=== PATIENT | female | born 1995 | race Two or more races ===

== ENCOUNTER 2023-07-08 21:01 | Emergency (ER) | payer OTHER, SELFPAY ==
[2023-07-08 21:27] VITALS: BP 152/68; PULSE 99; RESP 16; TEMP 36.8; O2SAT 95; BMI 45.7
[2023-07-08 21:57] LABS: MANUAL DIFF FLAG NO
[2023-07-08 21:59] LABS: Basophils Percent Auto 0.3 % (0-2); Eosinophils Absolute Auto 0.3 X10*3/uL (0.0-0.4); Eosinophils Percent Auto 3.6 % (0-4); Hematocrit 40.1 % (37.0-47.0); Hemoglobin 13.3 g/dl (12.0-16.0); Imm Gran Abs Auto 0.04 X10*3/uL (0.00-0.03); Imm Gran Pct Auto 0.5 % (0.0-0.4); Lymphocytes Absolute Auto 2.6 X10*3/uL (1.2-4.9); Mean Corpuscular HGB Conc 33.2 g/dl (31.0-35.0); Mean Corpuscular Hemoglobin 28.1 pg (27.0-33.0); Mean Corpuscular Volume 84.6 fL (80.0-98.0); Mean Platelet Volume 11.8 fL (9.4-12.3); Monocytes Absolute Auto 0.4 X10*3/uL (0.1-1.2); Monocytes Percent Auto 5.7 % (2-11); Neutrophils Absolute Auto 4.4 x10*3/uL (2.0-8.3); Neutrophils Percent Auto 56.9 % (45-73); Platelet Count 274 X10*3/uL (160-400); Red Blood Count 4.74 X10*6/uL (4.20-5.50); Red Cell Distribution Width 14.8 % (11.0-16.0); White Blood Count 7.8 X10*3/uL (4.8-10.8)
[2023-07-08 22:07] LABS: IDNOW Serial# 58CA691E
[2023-07-08 22:08] LABS: Strep A Nucleic Acid Positive (Negative)
[2023-07-08 22:14] LABS: Alanine Aminotransferase 28 U/L (0-31); Albumin Level 4.5 g/dL (3.5-5.0); Alkaline Phosphatase 74 U/L (39-117); Anion Gap 15 (12-20); Aspartate Amino Transferase 21 U/L (5-31); Bilirubin Direct 0.1 mg/dL (0.0-0.5); Bilirubin Total 0.4 mg/dL (0.0-1.0); Blood Urea Nitrogen 11 mg/dL (9-16); Calcium 9.9 mg/dL (8.4-10.2); Carbon Dioxide 24 mmol/L (22-29); Chloride 105 mmol/L (96-108); Creatinine Clr Calc Pharmacy 128.9; Estimated Glomerular Filt Rate > 60; Glucose Random 116 mg/dL (60-115); Lipase 21 U/L (8-78); Potassium 4.1 mmol/L (3.3-5.1); Sodium 140 mmol/L (135-145); Total Protein 8.4 g/dL (6.5-8.0)
[2023-07-08 22:37] LABS: Influenza A PCR NEGATIVE (Negative); Influenza B PCR NEGATIVE (Negative); Resp Syncy Virus RNA Qual PCR NEGATIVE (Negative); SARS COV2 PCR INHOUSE NEGATIVE (Negative)
--- NOTE | 2023-07-08 23:58 | ED.SKABFB ---
HPI - Skin/Abscess/Foreign Bdy General Chief complaint: Skin/Abscess/Foreign Body Stated complaint: body rash,bodyaches Time Seen by Provider: 07/08/23 23:33 Source: patient and family Mode of arrival: ambulatory Limitations: no limitations History of Present Illness HPI narrative: 27-year-old female history of hyper 10 who presents emergency department for evaluation of rash and sore throat. Patient states that 3 weeks prior she developed a sore throat but did not seek treatment her symptoms resolved. She she has a subjective fever but did not seek treatment. Since yesterday, she developed bumps on her upper and lower extremities as well as her groin area. She states that the bumps are painful to palpation. She is also experiencing generalized body aches. She did travel to [place] 3 weeks prior and did developed a sore throat while she was in [place]. The patient states that she stay mainly indoors restaurants but did not go to any outdoor areas. She states that she developed another sore throat after flying home from [place]. Related Data Previous Rx's Medication Instructions Recorded cephalexin 500 mg capsule 500 mg PO QID 10 days #40 caps 07/09/23 Allergies Allergy/AdvReac Type Severity Reaction Status Date / Time amoxicillin Allergy Vomiting Verified 07/08/23 21:35 Review of Systems Review of Systems: Yes all other systems are reviewed and are negative [facility] Past Medical History [facility] Narrative: Past medical history: Hypertension. Social History Advance Directives: No Advance Directives Information Provided: Yes Physical Exam Vital Signs: Vital Signs: Last Vital Signs Temp 98.2 F 07/08/23 21:27 Pulse 99 07/08/23 21:27 Resp 16 07/08/23 21:27 BP 152/68 H 07/08/23 21:27 Pulse Ox 95 07/08/23 21:27 O2 Del Method Room Air 07/08/23 21:27 BMI result Body Mass Index 45.7 Vital signs were normal except for an elevated blood pressure of 152/68 Exam: General: Awake, alert in no distress Head: Normocephalic, atraumatic EENT: PERRL, Lids normal, sclera normal, conjunctiva normal, nose normal , ears normal, throat without erythema or exudates Neck: Supple, no adenopathy, no trachea midline or C-spine tenderness Lung: breath sounds symmetric, no wheezing, rales or rhonchi Chest: symmetric movement, nontender Heart: regular rate and rhythm, normal S1, S2 no murmurs or rubs Abdomen: soft, non-tender, nondistended, normal bowel sounds Back: no vertebral tenderness, no CVAT Extremities: no deformities, moves all extremities symmetrically Skin: Patient multiple circular erythematous lesion of different sizes on her upper and lower extremity and on her hands sparing the palm, the or raised and tender to palpation, there is no increased warmth Psych: Pleasant, cooperative Medical Decision Making Medical Decision Making MDM Narrative: 27-year-old female history of hyper 10 who presents emergency department for evaluation of rash and sore throat. The patient had a sore throat 3 weeks prior which developed she travel to [place] by plane, symptoms resolved but when she traveled back she again developed a sore throat. Sore throat is resolved but she developed a painful rash on her upper and lower extremities yesterday with subjective fever. Vital signs were unremarkable except for an elevated blood pressure-she does have hypertension. Patient's rash is nonspecific and may be secondary to streptococcal infection or erythema nodosum caused by the streptococcal infect. Following tests were ordered: CBC, BMP, liver panel, lipase, the COVID-19, influenza, RSV, rapid strep test 00:17 The patient's laboratory evaluation was interpreted by me as follows: CBC was normal. BMP and liver tests were normal. COVID-19, influenza, RSV were negative Rapid strep was positive. Given the positive rapid streptococcal test, patient's rash is either a streptococcal skin infection versus erythema nodosum I did discuss these possibilities with the patient and the treatment for both conditions would be to treat the underlying infection Patient was started on Keflex 500 mg pills, 1 pill 4 times a day for 10 days, she was given her 1st dose here in the emergency department She has eyes take Tylenol and ibuprofen for pain and for fever. She was given printed and verbal instructions discharged home. Differential Diagnosis Differential Diagnoses: The differential diagnosis associated with the presentation includes Differential diagnosis includes was not limited to streptococcal skin infection, staphylococcal skin infection, erythema nodosum, strep pharyngitis, COVID-19, influenza, RSV Admission/Observation Consideration of admission/observation: Escalation of care including admission/observation considered Lab Data [facility] Lab Attestation statement: I reviewed the patient's lab results. See [facility] 07/08/23 21:52 07/08/23 21:52 Labs: Lab Results 07/08/23 Range/Units 21:52 WBC 7.8 (4.8-10.8) X10*3/uL RBC 4.74 (4.20-5.50) X10*6/uL Hgb 13.3 (12.0-16.0) g/dl Hct 40.1 (37.0-47.0) % MCV 84.6 (80.0-98.0) fL MCH 28.1 (27.0-33.0) pg MCHC 33.2 (31.0-35.0) g/dl RDW 14.8 (11.0-16.0) % Plt Count 274 (160-400) X10*3/uL MPV 11.8 (9.4-12.3) fL Immature Gran % (Auto) 0.5 H (0.0-0.4) % Neut % (Auto) 56.9 (45-73) % Lymph % (Auto) 33.0 (20-40) % [place] % (Auto) 5.7 (2-11) % Eos % (Auto) 3.6 (0-4) % Baso % (Auto) 0.3 (0-2) % Lymph # (Auto) 2.6 (1.2-4.9) X10*3/uL [place] # (Auto) 0.4 (0.1-1.2) X10*3/uL Eos # (Auto) 0.3 (0.0-0.4) X10*3/uL Baso # (Auto) 0.0 (0.0-0.2) X10*3/uL Abs Immat Gran (auto) 0.04 H (0.00-0.03) X10*3/uL Absolute Neuts (auto) 4.4 (2.0-8.3) x10*3/uL Absolute Nucleated RBC 0.000 (0.0-0.012) X10*3/uL Nucleated RBC % (auto) 0.0 (0.0-0.2) /100WBC Sodium 140 (135-145) mmol/L Potassium 4.1 (3.3-5.1) mmol/L Chloride 105 (96-108) mmol/L Carbon Dioxide 24 (22-29) mmol/L Anion Gap 15 (12-20) BUN 11 (9-16) mg/dL Creatinine 0.78 (0.5-1.4) mg/dL Estim Creat Clear Calc 128.9 Estimated GFR > 60 Random Glucose 116 H (60-115) mg/dL Calcium 9.9 (8.4-10.2) mg/dL Total Bilirubin 0.4 (0.0-1.0) mg/dL Direct Bilirubin 0.1 (0.0-0.5) mg/dL AST 21 (5-31) U/L ALT 28 (0-31) U/L Alkaline Phosphatase 74 (39-117) U/L Total Protein 8.4 H (6.5-8.0) g/dL Albumin 4.5 (3.5-5.0) g/dL Lipase 21 (8-78) U/L Influenza Type A (PCR) NEGATIVE (Negative) Influenza Type B (PCR) NEGATIVE (Negative) RSV RNA Qual (PCR) NEGATIVE (Negative) SARS-CoV-2 RNA (RT-PCR) NEGATIVE (Negative) S. pyogenes GrpA LINDA Positive A (Negative) Prescription Management I considered prescription management with: Antibiotic Chronic Conditions Patient?s care impacted by: Hypertension Discharge Plan Discharge Clinical Impression: Acute streptococcal pharyngitis, Erythema nodosum Patient Disposition: Home, Self-Care Instructions: Strep Throat (ED) Additional Instructions: Your blood work was unremarkable which is reassuring Your COVID-19,influenza and RSV tests were negative. Your rapid strep test of your throat was positive. Your rashes is either caused by a streptococcal infection or may be erythema nodosum which is an inflammatory reaction caused by a streptococcal infection. The treatment for both is to treat the underlying infection. Take Keflex (cephalexin) 500 mg pills, 1 pill 4 times a day for 10 days. Take ibuprofen 200 mg pills, 2 pills every 6 hours as needed for pain or fever. Take Tylenol (acetaminophen) 500 mg pills, 2 pills every 6 hours as needed for pain or fever. Follow-up with your doctor in 2 days. Please return to the emergency department if your symptoms get worse or if you develop any symptoms that are concerning to you. Prescriptions: New cephalexin 500 mg capsule 500 mg PO QID 10 Days Qty: 40 0RF
[2023-07-09 00:10] VITALS: BP 134/96; PULSE 107; RESP 16; TEMP 37.9; O2SAT 98
[2023-07-09] MEDS: cephALEXin 500 MG CAPSULE PO (00:10)
== END 2023-07-09 00:15 | disposition home or self-care (01) ==
PROVIDERS: Emergency Provider Emergency Medicine Emergency Medical Services
DX: J02.0 Streptococcal pharyngitis (principal); L52 Erythema nodosum; R21 Rash and other nonspecific skin eruption; Z20.822 Contact with and (suspected) exposure to COVID-19; Z20.828 Contact with and (suspected) exposure to other viral communicable diseases
CPT/HCPCS: 0241U; 80048; 80076; 83690; 85025; 87651; 99283; 99284

== ENCOUNTER 2023-07-14 02:57 | Inpatient (IN) | payer OTHER, SELFPAY ==
[2023-07-14 03:04] VITALS: BP 145/86; PULSE 87; RESP 16; TEMP 36.7; O2SAT 96; BMI 46.0
--- NOTE | 2023-07-14 04:01 | ED_ITS ---
HPI - Allergic Reaction General Chief complaint: Skin/Abscess/Foreign Body Stated complaint: Rash Time Seen by Provider: 07/14/23 03:54 Source: patient Mode of arrival: ambulatory Limitations: no limitations History of Present Illness HPI narrative: Patient was seen and past medical history apparently had sore throat 4 weeks ago got better without any treatment again from having sore throat since 07/06 seen here on 07/08 diagnosed as strep throat and started cephalexin before patient started on cephalexin patient noticed a rash on her both eyes which were maculopapular after taking cephalexin patient's rash got worse and spread to bilateral lower extremity with target lesions sparing oral mucosa palms and soles no abdominal pain no fever no history of similar rash in the past patient denies any significant itching no hematuria no other family member has this rash Related Data Previous Rx's Medication Instructions Recorded cephalexin 500 mg capsule 500 mg PO QID 10 days #40 caps 07/09/23 Allergies Allergy/AdvReac Type Severity Reaction Status Date / Time amoxicillin Allergy Vomiting Verified 07/14/23 03:06 Review of Systems 2 Review of Systems: Yes all other systems are reviewed and are negative [facility] Social History Social History Alcohol intake: never Smoked in Last 30 Days: No Use of substances other than those prescribed or required for medical reasons: No Advance Directives: No Advance Directives Information Provided: Yes Patient : No Physical Exam ED Vital Signs: Vital Signs - 24 hr 07/14/23 03:04 07/14/23 06:05 Temperature 98.0 F 98.3 F Pulse Rate 87 76 Respiratory Rate 16 16 Blood Pressure 145/86 H 148/74 H Pulse Oximetry 96 97 Oxygen Delivery Method Room Air Room Air BMI result Body Mass Index 46.0 Appearance: Alert. Oriented X3. No acute distress. Eyes: PERRLA, No Nystagmus ENT: Pharynx normal. Oral Mucosa moist no oral lesion Neck: Normal inspection. Neck supple. CVS: Normal heart rate and rhythm. Pulses normal. Respiratory: No respiratory distress. Equal air entry bilateral, no wheezing/rales/rhonchi Abdomen: Soft and nontender. Bowel sounds are present, no mass palpable, no CVA tenderness no hepatosplenomegaly Skin: Skin warm and dry. First picture is the rash which she has now, other pictures were the rash before she started on cephalexin Extremities: No lower extremity edema. No calf tenderness Neuro: Oriented X 3. Medications Administered Generic Name Dose Route Start Last Admin Trade Name Freq PRN Reason Stop Dose Admin Enoxaparin Sodium 40 mg 07/14/23 06:15 07/14/23 06:56 Enoxaparin Sodium 40 Mg/0.4 Ml Syringe SUBCUT 40 mg Q24H ROBERTA Administration Discontinued Medications Generic Name Dose Route Start Last Admin Trade Name Gioq PRN Reason Stop Dose Admin Diphenhydramine HCl 50 mg 07/14/23 04:05 07/14/23 04:33 Diphenhydramine Hcl 50 Mg/Ml Vial IVPUSH 07/14/23 04:06 50 mg ONCE ONE Administration Methylprednisolone Sodium Succinate 125 mg 07/14/23 04:01 07/14/23 04:33 Methylprednisolone Sod Succ 125 Mg/2 Ml Vial IVPUSH 07/14/23 04:02 125 mg ONCE ONE Administration Morphine Sulfate 4 mg 07/14/23 04:25 07/14/23 04:37 Morphine Sulfate 4 Mg/Ml Cartridge IVPUSH 07/14/23 04:26 4 mg ONCE ONE Administration Protocol Ondansetron HCl 4 mg 07/14/23 04:25 07/14/23 04:37 Ondansetron Hcl 4 Mg/2 Ml Vial IVPUSH 07/14/23 04:26 4 mg ONCE ONE Administration Medical Decision Making Medical Decision Making [facility] Narrative: Patient with maculopapular rash with target lesions sparing the etiology is not very clear unlikely erythema multiforme as mucosa was not involved, unlikely dress syndrome as patient has no eosinophilia will give IV steroid Benadryl and admit Differential Diagnosis Differential Diagnoses: The differential diagnosis associated with the presentation includes Aram Polo syndrome/erythema multiform/dress syndrome/small vessel vasculitis/lichenoid drug eruption/erythrodermic skin reaction Admission/Observation Consideration of admission/observation: Escalation of care including admission/observation considered Consult Healthcare Provider Management of the patient was discussed with: Hospitalist Lab Data [facility] Lab Attestation statement: I reviewed the patient's lab results. 07/14/23 04:29 07/14/23 04:52 Labs: Lab Results 07/14/23 07/14/23 Range/Units 04:29 04:52 WBC 5.4 (4.8-10.8) X10*3/uL RBC 4.19 L (4.20-5.50) X10*6/uL Hgb 11.6 L (12.0-16.0) g/dl Hct 35.8 L (37.0-47.0) % MCV 85.4 (80.0-98.0) fL MCH 27.7 (27.0-33.0) pg MCHC 32.4 (31.0-35.0) g/dl RDW 15.1 (11.0-16.0) % Plt Count 347 D (160-400) X10*3/uL MPV 11.3 (9.4-12.3) fL Immature Gran % (Auto) 2.0 H (0.0-0.4) % Neut % (Auto) 39.7 L (45-73) % Lymph % (Auto) 51.0 H (20-40) % [place] % (Auto) 3.7 (2-11) % Eos % (Auto) 3.2 (0-4) % Baso % (Auto) 0.4 (0-2) % Lymph # (Auto) 2.8 (1.2-4.9) X10*3/uL [place] # (Auto) 0.2 (0.1-1.2) X10*3/uL Eos # (Auto) 0.2 (0.0-0.4) X10*3/uL Baso # (Auto) 0.0 (0.0-0.2) X10*3/uL Abs Immat Gran (auto) 0.11 H (0.00-0.03) X10*3/uL Absolute Neuts (auto) 2.1 (2.0-8.3) x10*3/uL Absolute Nucleated RBC 0.000 (0.0-0.012) X10*3/uL Nucleated RBC % (auto) 0.0 (0.0-0.2) /100WBC ESR 20 (0-20) MM/HR PT 12.7 (11.1-13.3) SEC INR 1.0 (0.9-1.1) APTT 26.6 (26.0-36.4) SEC Sodium 140 (135-145) mmol/L Potassium 3.9 (3.3-5.1) mmol/L Chloride 108 (96-108) mmol/L Carbon Dioxide 20 L (22-29) mmol/L Anion Gap 16 (12-20) BUN 9 (9-16) mg/dL Creatinine 0.71 (0.5-1.4) mg/dL Estim Creat Clear Calc 142.1 Estimated GFR > 60 Random Glucose 126 H (60-115) mg/dL Calcium 8.9 D (8.4-10.2) mg/dL Total Bilirubin 0.4 (0.0-1.0) mg/dL AST 14 (5-31) U/L ALT 13 (0-31) U/L Alkaline Phosphatase 52 (39-117) U/L C-Reactive Protein 4.14 H (< or = 0.50) mg/dL Total Protein 7.7 (6.5-8.0) g/dL Albumin 4.1 (3.5-5.0) g/dL Discharge Plan Discharge Clinical Impression: Maculopapular rash Patient Disposition: Admitted As Inpatient
[2023-07-14] MEDS: diphenhydrAMINE HCL 50 MG/ML VIAL IVPUSH (04:33)
[2023-07-14] MEDS: methylPREDNISolone Sod Succ 125 MG/2 ML VIAL IVPUSH (04:33)
[2023-07-14 04:36] LABS: Basophils Percent Auto 0.4 % (0-2); Eosinophils Absolute Auto 0.2 X10*3/uL (0.0-0.4); Eosinophils Percent Auto 3.2 % (0-4); Hematocrit 35.8 % (37.0-47.0); Hemoglobin 11.6 g/dl (12.0-16.0); Imm Gran Abs Auto 0.11 X10*3/uL (0.00-0.03); Lymphocytes Absolute Auto 2.8 X10*3/uL (1.2-4.9); MANUAL DIFF FLAG NO; Mean Corpuscular HGB Conc 32.4 g/dl (31.0-35.0); Mean Corpuscular Hemoglobin 27.7 pg (27.0-33.0); Mean Corpuscular Volume 85.4 fL (80.0-98.0); Mean Platelet Volume 11.3 fL (9.4-12.3); Monocytes Absolute Auto 0.2 X10*3/uL (0.1-1.2); Monocytes Percent Auto 3.7 % (2-11); Neutrophils Absolute Auto 2.1 x10*3/uL (2.0-8.3); Neutrophils Percent Auto 39.7 % (45-73); Platelet Count 347 X10*3/uL (160-400); Red Blood Count 4.19 X10*6/uL (4.20-5.50); Red Cell Distribution Width 15.1 % (11.0-16.0); White Blood Count 5.4 X10*3/uL (4.8-10.8)
[2023-07-14] MEDS: ondansetron HCL 4 MG/2 ML VIAL IVPUSH (04:37)
[2023-07-14] MEDS: Morphine Sulfate 4 MG/ML CARTRIDGE IVPUSH (04:37)
[2023-07-14 04:43] LABS: Prothrombin Time 12.7 SEC (11.1-13.3)
[2023-07-14 04:45] LABS: Partial Thromboplastin Time 26.6 SEC (26.0-36.4)
[2023-07-14 05:07] LABS: Erythrocyte Sedimentation Rate 20 MM/HR (0-20)
[2023-07-14 05:15] LABS: Alanine Aminotransferase 13 U/L (0-31); Albumin Level 4.1 g/dL (3.5-5.0); Alkaline Phosphatase 52 U/L (39-117); Anion Gap 16 (12-20); Aspartate Amino Transferase 14 U/L (5-31); Bilirubin Total 0.4 mg/dL (0.0-1.0); Blood Urea Nitrogen 9 mg/dL (9-16); C Reactive Protein 4.14 mg/dL (< or = 0.50); Calcium 8.9 mg/dL (8.4-10.2); Carbon Dioxide 20 mmol/L (22-29); Chloride 108 mmol/L (96-108); Creatinine Clr Calc Pharmacy 142.1; Estimated Glomerular Filt Rate > 60; Glucose Random 126 mg/dL (60-115); Potassium 3.9 mmol/L (3.3-5.1); Sodium 140 mmol/L (135-145); Total Protein 7.7 g/dL (6.5-8.0)
[2023-07-14 06:05] VITALS: BP 148/74; PULSE 76; RESP 16; TEMP 36.8; O2SAT 97
--- NOTE | 2023-07-14 06:32 | P.HPHOSP_ITS ---
History of Present Illness Date of Service: 07/14/23 Attending physician on admission: Juan Ramon Batista Chief Complaint: Generalized body rash x 1 week Patient is a 27 year old obese white female with no significant past medical history who returns to the emergency room for re-evaluation of a generalized body rash. She give a history of having visited [place] 4 weeks ago and while there developed a sore throat that got better after several days without any treatment. She returned to [place] about 2 weeks go and a few days later had another sore throat with associated fevers and so came to the emergency room on 07/08 where she was diagnosed with a strep throat. At the same time, she reported few small erythmetous maculopapular rash and so was started on oral Cephalexin which she has been taking. However, the rash has progressed since then and is now all over her body (only sparing her back, face and palms) painful, itchy and has spread to involve both the upper extremities and trunk. She has not had any recent fevers or chills. Work up done in the ED included a CBC that revealed presence of mild anemia and a chemistry that was largely normal. Admission was requested for further evaluation and management. Review of Systems 2 Review of Systems: Yes all other systems are reviewed and are negative PMFSH Functional capacity: independent ambulation Patient : No Pertinent family history: Reviewed with the patient and not pertinent to this admission. Social History Alcohol intake: never Smoked in Last 30 Days: No Use of substances other than those prescribed or required for medical reasons: No Advance Directives: No Advance Directives Information Provided: Yes Patient : No Recent Travel in [facility] Within the Last 8 Weeks: Yes [facility] Travel Destination/s Comment: [place] Recent Out of Country Travel Within the Last 8 Weeks: No Exposure or Possible Exposure to Illness During Travel: No History of Being in a Healthcare Facility as a Patient, Worker, or Visitor during Travel: No Medical Treatment Received for Symptoms/Illness Related to Travel: No Meds Allergies Allergy/AdvReac Type Severity Reaction Status Date / Time amoxicillin Allergy Vomiting Verified 07/14/23 03:06 Active Medications: Current Medications Acetaminophen (Acetaminophen 325 Mg Tablet) 650 mg PO Q6H PRN PRN Reason: Pain, Mild (Pain Scale 1-3) Hydrocodone Bitart/Acetaminophen (Hydrocodone Bit/Acetam 5/325 Tablet) 1 tab PO Q4H PRN PRN Reason: Pain, Moderate(Pain Scale 4-6) Docusate Sodium (Docusate Sodium 100 Mg Capsule) 100 mg PO BID ROBERTA Enoxaparin Sodium (Enoxaparin Sodium 40 Mg/0.4 Ml Syringe) 40 mg SUBCUT Q24H ROBERTA Melatonin (Melatonin 3 Mg Tablet) 6 mg PO BEDTIME PRN PRN Reason: Insomnia Ondansetron HCl (Ondansetron Hcl 4 Mg/2 Ml Vial) 4 mg IVPUSH Q8H PRN PRN Reason: Nausea and Vomiting Sodium Chloride (0.9 % Sodium Chloride Flush 3 Ml Syringe) 3 ml IVFLUSH QSHIFT ROBERTA Physical Exam 2 Vital Signs and Narrative: Vital Signs: Last Vital Signs Temp 98.3 F 07/14/23 06:05 Pulse 76 07/14/23 06:05 Resp 16 07/14/23 06:05 BP 148/74 H 07/14/23 06:05 Pulse Ox 97 07/14/23 06:05 O2 Del Method Room Air 07/14/23 06:05 BMI result Body Mass Index 46.0 General: Morbidly obese WF in bed. Awake and alert. In no apparent distress Eyes: No pallor or jaundice. JENN, EOMI HENT: Moist oral mucus membranes. No oropharyngeal lesions. Neck: Supple. No cervical adenopathy. No JVD Cardiovascular: Regular rate and rhythm. Normal heart sounds. No murmurs, rubs or gallops. No JVD. No peripheral edema. Respiratory: Normal respiratory effort with no accessory muscle use. CTA bilaterally Gastrointestinal: Abdomen is soft, non-tender, non-distended. Normoactive bowel sounds. No hepatosplenomegally Extremities: No edema. No calf tenderness. Good peripheral pulses Skin - Noted with an extensive non-blanching maculopapullar rash , some appear target like an some spare the middle. No mottling. Capillary refill is < 2 seconds Neurological - AAOx4. Intact speech & cognition. Normal gait & balance. CN II - XII grossly intact but not individually tested. No motor or sensory deficits Hematologic: No bleeding. No ecchymosis. No swollen or tender lymph nodes. Psychiatric: Cooperative. Appropriate mood and affect . Results Labs 07/14/23 04:29 07/14/23 04:52 Labs: Laboratory Results - last 24 hr 07/14/23 07/14/23 04:29 04:52 MCV 85.4 MCH 27.7 MCHC 32.4 RDW 15.1 Plt Count 347 D MPV 11.3 Immature Gran % (Auto) 2.0 H Neut % (Auto) 39.7 L Lymph % (Auto) 51.0 H [place] % (Auto) 3.7 Eos % (Auto) 3.2 Baso % (Auto) 0.4 Lymph # (Auto) 2.8 [place] # (Auto) 0.2 Eos # (Auto) 0.2 Baso # (Auto) 0.0 Abs Immat Gran (auto) 0.11 H Absolute Neuts (auto) 2.1 Absolute Nucleated RBC 0.000 Nucleated RBC % (auto) 0.0 ESR 20 PT 12.7 INR 1.0 APTT 26.6 Anion Gap 16 Estim Creat Clear Calc 142.1 Estimated GFR > 60 Random Glucose 126 H Calcium 8.9 D Total Bilirubin 0.4 AST 14 ALT 13 Alkaline Phosphatase 52 C-Reactive Protein 4.14 H Total Protein 7.7 Albumin 4.1 Assessment and Plan (1) Maculopapular rash: Status: Acute (2) Morbid obesity with BMI of 45.0-49.9, adult: Status: Acute Plan 27 year old morbidly obese WF here with 1. Maculopapular erythematous rash - unclear etiology - doubt strep toxin rash /scarlet fever given age - differential diagnosis to include erythema multiforme vs erythema nodosum - admit and consult ID 2. Exogenous obesity - encourage weight loss Total time managing care of this patient today: 75 minutes. Quality Stroke Does the patient have a stroke diagnosis?: No VTE Prior VTE?: No VTE Risk Level:: Medical - moderate - high VTE Device Contraindication: N/A - Device Ordered VTE Drug Contraindication: N/A - Med Ordered
[2023-07-14] MEDS: Enoxaparin Sodium 40 MG/0.4 ML SYRINGE SUBCUT (06:56)
--- NOTE | 2023-07-14 07:00 | PC.NURSE ---
Assumed care of pt at this time; All safety measures in place.
[2023-07-14] MEDS: HYDROcodone Bit/Acetam 5/325 TABLET 1 TAB PO (08:24)
[2023-07-14] MEDS: Docusate Sodium 100 MG CAPSULE PO (08:24)
[2023-07-14] MEDS: 0.9 % Sodium Chloride Flush 3 ML SYRINGE IVFLUSH (08:25)
--- NOTE | 2023-07-14 09:05 | PHA.MEDREC ---
Pharmacy Consult ? Medication Reconciliation Pharmacy has completed the medication reconciliation. Spoke to patient to confirm meds.
[2023-07-14 09:53] VITALS: BP 127/68; PULSE 89; RESP 16; O2SAT 97
--- NOTE | 2023-07-14 11:52 | MHC.CM.PN ---
CM MET WITH PT AND HER S/O AT BEDSIDE PT LIVES WITH HER BF AND IS INDEPENDENT WITH CARE SHE HAS NO DME AND NO SERVICES PT DECLINES TO COMPLETE A HCP AND HAS NO PCP PT REPORTS SHE IS WORKING ON GETTING A PCP AND DOES NOT NEED ASSISTANCE PT REPORTS SHE WAS TOLD SHE COULD GO HOME TODAY AND WOULD LIKE TO KNOW HOW MUCH LONGER CM MESSAGED HOSPITALIST FOR CONFIRMATION, AWAITING RESPONSE
[2023-07-14 12:00] VITALS: BP 157/79; PULSE 106; RESP 16; TEMP 37.3; O2SAT 98
--- NOTE | 2023-07-14 12:02 | PC.NURSE ---
Provider Armin Vines contacted: This RN: Kavin! RE: Jeanine Mahmood They are requesting to speak to you at bedside in regard to making a desicion on whether or not to stay or be discharged to follow up with infectious disease. She is also requesting Morphine for pain, the Lorcet did not provide any relief for her. Mohinder: ok This Rn: Will you reorder the morphine 4mg IVP for pain control? Mohinder: I will talk to them, if she's going home then there is no need for IV mophine
--- NOTE | 2023-07-14 12:47 | MHC.EDTECH ---
Brought patient a fresh pitcher of ice water.
[2023-07-14] MEDS: Morphine Sulfate 2 MG/ML CARTRIDGE IVPUSH (13:17)
[2023-07-14 14:00] VITALS: BP 143/79; PULSE 90; RESP 16; TEMP 37.3; O2SAT 97
--- NOTE | 2023-10-30 12:46 | P.DS_ITS ---
DS: Providers Provider Date of Service: 07/14/23 Date of admission: 07/14/23 06:13 Primary care physician: None Physician Consults: 07/14/23 07:07 Consult to Infectious Diseases Routine Consulting Provider: JACQUELYN TEE Reason for consultation: Erythematous maculopapular body rash Has provider been notified: No DS: Diagnosis Discharge Diagnosis (1) Maculopapular rash: Status: Acute (2) Morbid obesity with BMI of 45.0-49.9, adult: Status: Acute DS: Summary Hospital Course Hospital Course: Chief Complaint: Generalized body rash x 1 week Patient is a 27 year old obese white female with no significant past medical history who returns to the emergency room for re-evaluation of a generalized body rash. She give a history of having visited [place] 4 weeks ago and while there developed a sore throat that got better after several days without any treatment. She returned to [place] about 2 weeks go and a few days later had another sore throat with associated fevers and so came to the emergency room on 07/08 where she was diagnosed with a strep throat. At the same time, she reported few small erythmetous maculopapular rash and so was started on oral Cephalexin which she has been taking. However, the rash has progressed since then and is now all over her body (only sparing her back, face and palms) painful, itchy and has spread to involve both the upper extremities and trunk. She has not had any recent fevers or chills. Work up done in the ED included a CBC that revealed presence of mild anemia and a chemistry that was largely norm al. Admission was requested for further evaluation and management. Hospital course: She was admitted for a rash believed to be caused by cephalexin. She was treated with Benadryl and steroid with improvement. The antibiotics was changed Azithromycin to complete treatment of strep throat Final diagnoses: Drug rash Strep throat morbid obesity Date of service 07/14/23 Time Attestation Discharge Coordination Time (in mins): 33 Quality: Safe Use of Opioids Does Pt have an Active Cancer Diagnosis on the Problem List?: No Quality: Stroke Does the patient have a stroke diagnosis?: No Physical Exam Vital Signs: Vital Signs: Last Vital Signs Temp 99.2 F 07/14/23 14:00 Pulse 90 07/14/23 14:00 Resp 16 07/14/23 14:00 BP 143/79 H 07/14/23 14:00 Pulse Ox 97 07/14/23 14:00 O2 Del Method Room Air 07/14/23 14:00 BMI result Body Mass Index 46.0 Discharge Plan Discharge Anticipated Discharge Date/Time: 07/14/23 14:50 Patient Disposition: Home, Self-Care Discharge Diagnosis: Rash Referrals: Physician,None [Primary Care Provider] - 1 Week Discharge Medications: New prednisone 20 mg tablet 40 mg PO DAILY Qty: 4 0RF azithromycin 500 mg tablet 500 mg PO DAILY 5 Days Qty: 5 0RF Benadryl Itch Cooling 2-0.1 % aerosol,spray 1 spray topical TID PRN (Reason: skin irritation) Qty: 59 0RF Continued norethindrone (contraceptive) 0.35 mg tablet 0.35 mg PO DAILY acetaminophen 500 mg Tablet 1,000 mg PO Q6H PRN (Reason: Pain) ibuprofen 200 mg Tablet 400 mg PO Q8H PRN (Reason: Pain) Discontinued cephalexin 500 mg capsule 500 mg PO QID 10 Days Qty: 40 0RF Discharge Orders: Discharge Order (Routine); Ordered 07/14/23 Ordered By: Armin Vines Diet: Advance to usual diet Activity on Discharge: As tolerated Stand Alone Forms: Patient Portal Discharge page Care Plan Goals: Rash to go away recent strep throat Health Concerns: Rash recnet strep throat Plan of Treatment: take Prednisone as directed to treat inflamation from rash use Benadryl for itching Cephalexin is stopped as there is a possibility that you may have reacted as it has some similarity to penecillin which you are allergic to take Azithromycin in place of Cephalexin for strep throat; if you notice worsening of the rash please stop the make and return to the emergency department. Azithromycin is acceptable in breast feeding, however if your if you are concern about taking antibiotics while breast feeding, you may use formula until you complete the antibiotics Follow up with your doctor in a week, call for appointment Pari for pain Assessment: You have a rash that may have been cause by Discharge Date/Time: 07/14/23 15:35
== END 2023-07-14 15:35 | disposition home or self-care (01) | DRG 385 ==
LOC: HO.ED 03:54 → HO.EDOVER 06:28
PROVIDERS: Admitting Provider Internal Medicine; Emergency Provider Internal Medicine; Visit Provider Internal Medicine
DX: R21 Rash and other nonspecific skin eruption (principal); D64.9 Anemia, unspecified; E66.09 Other obesity due to excess calories; Z68.42 Body mass index [BMI] 45.0-49.9, adult; Z79.899 Other long term (current) drug therapy
CPT/HCPCS: 36415; 80053; 85025; 85610; 85652; 85730; 86140; 99221; 99284; J1200; J1650; J2270; J2405; J2930

== ENCOUNTER → 2023-07-14 06:13 | Outpatient (BNV) | payer OTHER, SELFPAY | PROVIDERS: Admitting Provider Internal Medicine; Emergency Provider Internal Medicine; Visit Provider Internal Medicine | DX: R21 Rash and other nonspecific skin eruption (principal); E66.01 Morbid (severe) obesity due to excess calories; Z68.42 Body mass index [BMI] 45.0-49.9, adult | CPT/HCPCS: 99221; 99235; 99499 ==

== ENCOUNTER 2023-07-19 16:32 | Outpatient (REF) | payer OTHER, SELFPAY ==
[2023-07-19 16:55] LABS: MANUAL DIFF FLAG NO
[2023-07-19 17:26] LABS: Appearance Urine Clear; Color Urine Dark Yellow; Glucose Urine UA Negative (Negative); Leukocyte Esterase Urine Negative (Negative); Nitrite Urine Negative (Negative); PH 5.5 (5.0-9.0); Specific Gravity - Urine >= 1.030 (1.005-1.025); Urine Blood Negative (Negative); Urine Ketones Trace mg/dL (Negative); Urine Protein Trace mg/dL (Neg-Trace)
[2023-07-19 17:32] LABS: Bacteria Urine None Seen (None Seen); Hyaline Casts Urine 0-2 /LPF (0-2); RBC Urine 0-2 /HPF (0-2); WBC Urine 0-5 /HPF (0-5)
[2023-07-19 17:36] LABS: Basophils Percent Auto 0.4 % (0-2); Eosinophils Absolute Auto 0.2 X10*3/uL (0.0-0.4); Eosinophils Percent Auto 2.6 % (0-4); Hematocrit 33.6 % (37.0-47.0); Hemoglobin 10.9 g/dl (12.0-16.0); Imm Gran Abs Auto 0.09 X10*3/uL (0.00-0.03); Lymphocytes Absolute Auto 4.1 X10*3/uL (1.2-4.9); Lymphocytes Percent Auto 45.2 % (20-40); Mean Corpuscular HGB Conc 32.4 g/dl (31.0-35.0); Mean Corpuscular Hemoglobin 27.6 pg (27.0-33.0); Mean Corpuscular Volume 85.1 fL (80.0-98.0); Mean Platelet Volume 11.2 fL (9.4-12.3); Monocytes Absolute Auto 0.5 X10*3/uL (0.1-1.2); Monocytes Percent Auto 5.4 % (2-11); Neutrophils Absolute Auto 4.1 x10*3/uL (2.0-8.3); Neutrophils Percent Auto 45.4 % (45-73); Platelet Count 387 X10*3/uL (160-400); Red Blood Count 3.95 X10*6/uL (4.20-5.50); Red Cell Distribution Width 14.8 % (11.0-16.0)
[2023-07-19 17:54] LABS: Rheumatoid Factor < 13.0 IU/mL (<15.0)
[2023-07-19 17:56] LABS: Alanine Aminotransferase 25 U/L (0-31); Albumin Level 4.2 g/dL (3.5-5.0); Alkaline Phosphatase 57 U/L (39-117); Anion Gap 13 (12-20); Aspartate Amino Transferase 18 U/L (5-31); Bilirubin Total 0.5 mg/dL (0.0-1.0); Blood Urea Nitrogen 15 mg/dL (9-16); C Reactive Protein 0.89 mg/dL (< or = 0.50); Calcium 8.8 mg/dL (8.4-10.2); Carbon Dioxide 26 mmol/L (22-29); Chloride 108 mmol/L (96-108); Estimated Glomerular Filt Rate > 60; Glucose Random 98 mg/dL (60-115); Potassium 3.7 mmol/L (3.3-5.1); Sodium 143 mmol/L (135-145); Total Protein 7.3 g/dL (6.5-8.0)
[2023-07-19 18:19] LABS: Erythrocyte Sedimentation Rate 15 MM/HR (0-20)
[2023-07-24 08:04] LABS: Anti Nuclear Antibody Screen NEGATIVE (NEGATIVE)
[2023-07-26 11:19] LABS: Streptolysin O Antibody 1137 IU/mL (<200)
== END 2023-07-19 16:33 | disposition home or self-care (01) ==
LOC: HO.LAB 16:32
PROVIDERS: Visit Provider Physician Assistant Medical
DX: L30.9 Dermatitis, unspecified (principal)
CPT/HCPCS: 36415; 80053; 81001; 82595; 85025; 85652; 86038; 86060; 86140; 86431